=== PATIENT | male | born 1945 | race Caucasian/White ===

== ENCOUNTER 2023-04-18 14:40 | Inpatient (IN) | payer MEDICARE, OTHER ==
[~2023-04-18] VITALS: Ht 170.2 cm; Wt 64.1 kg
[2023-04-18] MEDS ORDERED: FOLI1TAB27 PO (15:04)
[2023-04-18] MEDS ORDERED: ACET-2030 PO (15:04)
[2023-04-18] MEDS ORDERED: SIMV-46 PO (15:04)
[2023-04-18] MEDS ORDERED: MEMA5TAB42 PO (15:04)
[2023-04-18] MEDS ORDERED: TAMS-3 PO (15:04)
[2023-04-18] MEDS ORDERED: EPIN0.3P3 IM (15:04)
[2023-04-18] MEDS ORDERED: ACET325T53 PO (15:04)
[2023-04-18] MEDS ORDERED: ASCO500C18 PO (15:04)
[2023-04-18] MEDS ORDERED: MULT-594 PO (15:04)
[2023-04-18] MEDS ORDERED: NUT.237L36 PO (15:04)
[2023-04-18] MEDS ORDERED: IV NORMAL SALINE 1000 ML BAG IV ONE (15:15)
[2023-04-18] MEDS ORDERED: CEFTRIAXONE 2 G in IV DEXTROSE 5% 100 ML IV ONE (15:15)
[2023-04-18 16:02] LABS: CARBON DIOXIDE 29 mmol/L (21-32); CHLORIDE 102 mmol/L (98-107); CREATININE 1.5 mg/dL (0.6-1.3); GLUCOSE 133 mg/dL (74-106); POTASSIUM 4.4 mmol/L (3.5-5.1); SODIUM SERUM 138 mmol/L (136-145); UREA NITROGEN, BLOOD 20 mg/dL (7-18)
[2023-04-18 16:12] LABS: *BILIRUBIN,URIN NEGATIVE (NEGATIVE); *CLARITY,URINE CLEAR (CLEAR); *COLOR,URINE YELLOW (YELLOW); *KETONES,URINE NEGATIVE (NEGATIVE); *PROTEIN,URINE NEGATIVE (NEGATIVE); *UROBILINOGEN,URINE 0.2 E.U./dl (NORMAL); LEUKOCYTE ESTERASE ,URINE NEGATIVE (NEGATIVE); NITRITE, URINE NEGATIVE (NEGATIVE); UGLUCOSE NEGATIVE (NEGATIVE)
[2023-04-18 16:12] LABS: BASOPHILS % (AUTO) 0.3 % (0.0-2.0); DIFFERENTIAL COMMENT 0; EOSINOPHILS # (AUTO) 0.1 K/uL (0.0-0.7); EOSINOPHILS % (AUTO) 1.7 % (0.0-7.0); HEMATOCRIT 46.6 % (36.7-47.1); HEMOGLOBIN 15.6 g/dL (12.5-16.3); LYMPHOCYTES # (AUTO) 1.4 K/uL (0.8-4.8); LYMPHOCYTES % (AUTO) 16.2 % (20.5-51.5); MEAN CORPUSCULAR HEMOGLOBIN 29.3 uug (23.8-33.4); MEAN CORPUSCULAR HGB CONC 33 g/dL (32.5-36.3); MEAN CORPUSCULAR VOLUME 87.8 fL (73.0-96.2); MONOCYTES # (AUTO) 0.6 K/uL (0.1-1.30); MONOCYTES % (AUTO) 6.8 % (0.0-11.0); NEUTROPHILS # (AUTO) 6.6 K/uL (1.8-8.9); PLATELET COUNT (AUTO) 129 K/uL (152-348); RED BLOOD CELL COUNT(AUTO) 5.31 MIL/uL (4.06-5.63); RED CELL DISTRIBUTION WIDTH 13.4 % (12.1-16.2); WHITE BLOOD COUNT (AUTO) 8.8 K/uL (3.6-10.2)
[2023-04-18 16:16] LABS: *BLOOD, URINE TRACE (NEGATIVE)
[2023-04-18 16:19] LABS: LACTIC ACID 2.9 mmol/L (0.4-2.0)
[2023-04-18 16:20] LABS: AMMONIA 12 umol/L (11-32); ETHANOL < 3 MG/DL (0-10)
[2023-04-18 16:21] LABS: ACETAMINOPHEN < 2.0 ug/mL (10-30); ALANINE AMINOTRANSFERASE 45 U/L (16-63); ALBUMIN 3.7 g/dL (3.4-5.0); ALKALINE PHOSPHATASE 127 U/L (50-136); ASPARTATE AMINOTRANSFERASE 39 U/L (15-37); BILIRUBIN,DIRECT 0.1 mg/dL (0.0-0.2); BILIRUBIN,TOTAL 0.8 mg/dL (0.2-1.0)
[2023-04-18] MEDS ORDERED: METRONIDAZOLE 500 MG/NS 100 ML PIGGYBACK IV ONE (16:30)
[2023-04-18 16:37] LABS: RBC,URINE 0-3 /HPF (0-3); WBC,URINE NONE SEEN /HPF (0-3)
[2023-04-18 16:38] LABS: SQUAMOUS EPITHELIAL CELL,UR FEW /HPF (NONE SEEN)
[2023-04-18 16:42] LABS: *AMPHETAMINE, URINE NEGATIVE (NEGATIVE); *BARBITURATE, URINE NEGATIVE (NEGATIVE); *BENZODIAZEPINE, URINE NEGATIVE (NEGATIVE); *CANNABINOID, URINE NEGATIVE (NEGATIVE); *COCCAINE, URINE NEGATIVE (NEGATIVE); *OPIATE, URINE NEGATIVE (NEGATIVE); *PHENCYCLIDINE SCREEN,URINE NEGATIVE (NEGATIVE); FENTANYL, URINE NEGATIVE (NEGATIVE)
[2023-04-18] MEDS ORDERED: METRONIDAZOLE 500 MG/NS 100ML 100 ML IV ONE (17:10)
[2023-04-18] MEDS ORDERED: SIMVASTATIN 20 MG TABLET PO SCH (21:00)
[2023-04-18] MEDS ORDERED: TAMSULOSIN HCL 0.4 MG CAP.SR.24H PO SCH (21:00)
[2023-04-18] MEDS ORDERED: ACETAMINOPHEN 325 MG TABLET PO PRN (21:15)
[2023-04-18] MEDS ORDERED: MORPHINE SULFATE 2 MG/1 ML DISP.SYRIN IV PRN (21:15)
[2023-04-18] MEDS ORDERED: ONDANSETRON 4 MG/2 ML VIAL IV PRN (21:15)
[2023-04-18] MEDS ORDERED: PIPERACILLIN SODIUM/TAZOBACTAM 3.375 G in IV DEXTROSE 5% 50 ML IV SCH (22:00)
[2023-04-18 22:30] VITALS: BP 150/80; TEMP 97.9; O2SAT 96
[2023-04-18] MEDS ORDERED: PIPERACILLIN/TAZOBACTAM/D5W 50 ML IV ONE ×2 (22:37→22:38)
[2023-04-18] MEDS: IV 1/2NS 1000 ML 1,000 ML IV PRN (22:42)
[2023-04-18] MEDS: PIPERACILLIN SODIUM/TAZOBACTAM 3.375 G in IV DEXTROSE 5% 50 ML IV SCH (22:42)
[2023-04-19 05:28] VITALS: BP 126/66; TEMP 98; O2SAT 93
[2023-04-19] MEDS: PIPERACILLIN SODIUM/TAZOBACTAM 3.375 G in IV DEXTROSE 5% 50 ML IV SCH (05:44)
[2023-04-19] MEDS: PANTOPRAZOLE SODIUM 40 MG TABLET.DR PO SCH (06:02)
[2023-04-19 07:11] LABS: BASOPHILS % (AUTO) 0.2 % (0.0-2.0); EOSINOPHILS # (AUTO) 0.1 K/uL (0.0-0.7); EOSINOPHILS % (AUTO) 1.1 % (0.0-7.0); HEMATOCRIT 41.3 % (36.7-47.1); HEMOGLOBIN 14.1 g/dL (12.5-16.3); LYMPHOCYTES # (AUTO) 0.8 K/uL (0.8-4.8); LYMPHOCYTES % (AUTO) 9.5 % (20.5-51.5); MEAN CORPUSCULAR HGB CONC 34 g/dL (32.5-36.3); MEAN CORPUSCULAR VOLUME 87.6 fL (73.0-96.2); MONOCYTES # (AUTO) 0.4 K/uL (0.1-1.30); MONOCYTES % (AUTO) 4.6 % (0.0-11.0); NEUTROPHILS # (AUTO) 7.1 K/uL (1.8-8.9); NEUTROPHILS % (AUTO) 84.6 % (38.5-71.5); PLATELET COUNT (AUTO) 92 K/uL (152-348); RED BLOOD CELL COUNT(AUTO) 4.71 MIL/uL (4.06-5.63); RED CELL DISTRIBUTION WIDTH 13.5 % (12.1-16.2); WHITE BLOOD COUNT (AUTO) 8.4 K/uL (3.6-10.2)
[2023-04-19 07:21] LABS: DIFFERENTIAL COMMENT 1
[2023-04-19 07:24] LABS: ALANINE AMINOTRANSFERASE 40 U/L (16-63); ALBUMIN 3.1 g/dL (3.4-5.0); ALKALINE PHOSPHATASE 107 U/L (50-136); ASPARTATE AMINOTRANSFERASE 29 U/L (15-37); BILIRUBIN,TOTAL 0.9 mg/dL (0.2-1.0); CALCIUM 8.6 mg/dL (8.5-10.1); CARBON DIOXIDE 26 mmol/L (21-32); CHLORIDE 105 mmol/L (98-107); CHOLESTEROL 91 mg/dL (<200); CREATININE 1.5 mg/dL (0.6-1.3); GLUCOSE 104 mg/dL (74-106); HDL CHOLESTEROL 32 mg/dL (40-60); NT-PRO BNP 240 pg/mL (0-125); PHOSPHOROUS 2.8 mg/dL (2.5-4.9); SODIUM SERUM 140 mmol/L (136-145); TOTAL PROTEIN, SERUM 6.8 g/dL (6.4-8.2); TRIGLYCERIDES 76 MG/DL (30-150); UREA NITROGEN, BLOOD 18 mg/dL (7-18)
[2023-04-19] MEDS ORDERED: ASPIRIN 81 MG TAB.CHEW PO ONE (09:00)
[2023-04-19] MEDS: MEMANTINE HCL 5 MG TABLET PO SCH ×2 (09:22→17:11)
[2023-04-19] MEDS: MULTIVITAMINS,THERAPEUTIC TABLET PO SCH (09:22)
[2023-04-19] MEDS: ASCORBIC ACID 500 MG TABLET PO SCH (09:22)
[2023-04-19] MEDS: FOLIC ACID 1 MG TABLET PO SCH (09:23)
[2023-04-19 11:15] VITALS: BP 155/73; TEMP 97.6; O2SAT 97
[2023-04-19] MEDS ORDERED: CLONIDINE HCL 0.1 MG TABLET PO PRN (11:45)
[2023-04-19] MEDS: IV 1/2NS 1000 ML 1,000 ML IV PRN (14:46)
[2023-04-19] MEDS: PIPERACILLIN SODIUM/TAZOBACTAM 3.375 G in IV DEXTROSE 5% 100 ML IV SCH ×2 (14:47→22:06)
[2023-04-19 15:03] VITALS: BP 138/57; TEMP 98.2; O2SAT 96
[2023-04-19 20:10] VITALS: BP 133/73; TEMP 98.4; O2SAT 94
[2023-04-19 20:32] VITALS: BP 98/57; TEMP 98.2; O2SAT 94
[2023-04-19] MEDS: TAMSULOSIN HCL 0.4 MG CAP.SR.24H PO SCH (20:53)
[2023-04-19] MEDS: DOCUSATE SODIUM 100 MG CAPSULE PO SCH (20:53)
[2023-04-20 00:20] VITALS: BP_SYST 112; BP_SYST 128; BP_DIAS 74; BP_DIAS 85; TEMP 98.9; O2SAT 100; O2SAT 96
[2023-04-20 04:22] VITALS: BP 128/66; TEMP 98.2; O2SAT 97
[2023-04-20] MEDS: PIPERACILLIN SODIUM/TAZOBACTAM 3.375 G in IV DEXTROSE 5% 100 ML IV SCH ×3 (05:51→22:08)
[2023-04-20 06:21] LABS: *BILIRUBIN,URIN NEGATIVE (NEGATIVE); *BLOOD, URINE 3+ (NEGATIVE); *COLOR,URINE YELLOW (YELLOW); *CREATININE,URINE 96.4 mg/dL (30-125); *KETONES,URINE 1+ (NEGATIVE); *PROTEIN,URINE 2+ (NEGATIVE); *URINE TOTAL PROTEIN RANDOM 126.6 mg/dL (<150/24HR); *UROBILINOGEN,URINE 0.2 E.U./dl (NORMAL); NITRITE, URINE NEGATIVE (NEGATIVE); PH,URINE 5.5 (5.0-8.0); UGLUCOSE NEGATIVE (NEGATIVE)
[2023-04-20 06:23] LABS: *CLARITY,URINE SLIGHTLY CLOUDY (CLEAR); LEUKOCYTE ESTERASE ,URINE NEGATIVE (NEGATIVE)
[2023-04-20 06:54] LABS: RBC,URINE TNTC /HPF (0-3); WBC,URINE NONE SEEN /HPF (0-3)
[2023-04-20] MEDS: PANTOPRAZOLE SODIUM 40 MG TABLET.DR PO SCH (07:07)
[2023-04-20] MEDS: MULTIVITAMINS,THERAPEUTIC TABLET PO SCH (08:48)
[2023-04-20] MEDS: MEMANTINE HCL 5 MG TABLET PO SCH ×2 (08:48→16:44)
[2023-04-20] MEDS: FOLIC ACID 1 MG TABLET PO SCH (08:48)
[2023-04-20] MEDS: ASCORBIC ACID 500 MG TABLET PO SCH (08:48)
[2023-04-20 11:31] VITALS: BP 145/74; TEMP 97.7; O2SAT 97
[2023-04-20] MEDS ORDERED: ASPIRIN 81 MG TAB.CHEW PO ONE (14:30)
[2023-04-20 15:43] VITALS: BP 128/55; TEMP 98; O2SAT 95
[2023-04-20] MEDS: ENSURE ENLIVE (VAN) 240 ML LIQUID PO SCH (16:44)
[2023-04-20 20:00] VITALS: BP 123/57; TEMP 98.2
[2023-04-20] MEDS: DOCUSATE SODIUM 100 MG CAPSULE PO SCH (20:23)
[2023-04-20] MEDS: TAMSULOSIN HCL 0.4 MG CAP.SR.24H PO SCH (20:23)
[2023-04-21] MEDS: IV 1/2NS 1000 ML 1,000 ML IV PRN (03:50)
[2023-04-21 05:22] VITALS: BP 132/68; TEMP 98.3; O2SAT 93
[2023-04-21] MEDS: PIPERACILLIN SODIUM/TAZOBACTAM 3.375 G in IV DEXTROSE 5% 100 ML IV SCH ×3 (05:50→21:04)
[2023-04-21] MEDS: PANTOPRAZOLE SODIUM 40 MG TABLET.DR PO SCH (05:55)
[2023-04-21 07:03] LABS: BASOPHILS % (AUTO) 0.2 % (0.0-2.0); EOSINOPHILS # (AUTO) 0.3 K/uL (0.0-0.7); EOSINOPHILS % (AUTO) 2.9 % (0.0-7.0); HEMATOCRIT 39.7 % (36.7-47.1); HEMOGLOBIN 13.6 g/dL (12.5-16.3); LYMPHOCYTES # (AUTO) 1.1 K/uL (0.8-4.8); LYMPHOCYTES % (AUTO) 10.6 % (20.5-51.5); MEAN CORPUSCULAR HEMOGLOBIN 29.9 uug (23.8-33.4); MEAN CORPUSCULAR HGB CONC 34 g/dL (32.5-36.3); MEAN CORPUSCULAR VOLUME 87.2 fL (73.0-96.2); MONOCYTES # (AUTO) 0.7 K/uL (0.1-1.30); MONOCYTES % (AUTO) 6.6 % (0.0-11.0); NEUTROPHILS # (AUTO) 8.1 K/uL (1.8-8.9); NEUTROPHILS % (AUTO) 79.7 % (38.5-71.5); PLATELET COUNT (AUTO) 100 K/uL (152-348); RED BLOOD CELL COUNT(AUTO) 4.55 MIL/uL (4.06-5.63); RED CELL DISTRIBUTION WIDTH 13.3 % (12.1-16.2); WHITE BLOOD COUNT (AUTO) 10.2 K/uL (3.6-10.2)
[2023-04-21 07:17] LABS: DIFFERENTIAL COMMENT 1
[2023-04-21 07:23] LABS: ALANINE AMINOTRANSFERASE 27 U/L (16-63); ALKALINE PHOSPHATASE 86 U/L (50-136); ASPARTATE AMINOTRANSFERASE 19 U/L (15-37); BILIRUBIN,TOTAL 0.6 mg/dL (0.2-1.0); CALCIUM 9.2 mg/dL (8.5-10.1); CARBON DIOXIDE 32 mmol/L (21-32); CHLORIDE 103 mmol/L (98-107); CREATINE KINASE, TOTAL 177 U/L (39-308); CREATININE 1.8 mg/dL (0.6-1.3); GLUCOSE 114 mg/dL (74-106); MAGNESIUM 2.1 mg/dL (1.8-2.4); PHOSPHOROUS 2.8 mg/dL (2.5-4.9); POTASSIUM 3.5 mmol/L (3.5-5.1); SODIUM SERUM 139 mmol/L (136-145); TOTAL PROTEIN, SERUM 6.8 g/dL (6.4-8.2); UREA NITROGEN, BLOOD 18 mg/dL (7-18)
[2023-04-21 08:00] VITALS: BP 133/70; TEMP 98.1; O2SAT 94
[2023-04-21] MEDS: MEMANTINE HCL 5 MG TABLET PO SCH ×2 (09:05→17:20)
[2023-04-21] MEDS: ASCORBIC ACID 500 MG TABLET PO SCH (09:05)
[2023-04-21] MEDS: FOLIC ACID 1 MG TABLET PO SCH (09:05)
[2023-04-21] MEDS: MULTIVITAMINS,THERAPEUTIC TABLET PO SCH (09:05)
[2023-04-21] MEDS: ENSURE ENLIVE (VAN) 240 ML LIQUID PO SCH ×2 (09:06→17:20)
[2023-04-21] MEDS ORDERED: FUROSEMIDE 20 MG/2 ML VIAL IV ONE (10:45)
[2023-04-21 11:32] VITALS: BP 129/68; TEMP 98.5; O2SAT 96
[2023-04-21] MEDS ORDERED: ASPIRIN 81 MG TAB.CHEW PO ONE (12:00)
[2023-04-21 16:00] VITALS: BP 128/79; TEMP 98.5; O2SAT 96
[2023-04-21 20:00] VITALS: BP 131/65; TEMP 97.8; O2SAT 100
[2023-04-21] MEDS: DOCUSATE SODIUM 100 MG CAPSULE PO SCH (20:25)
[2023-04-21] MEDS: TAMSULOSIN HCL 0.4 MG CAP.SR.24H PO SCH (20:25)
[2023-04-22 04:45] VITALS: BP 128/70; TEMP 98; O2SAT 100
[2023-04-22] MEDS: PIPERACILLIN SODIUM/TAZOBACTAM 3.375 G in IV DEXTROSE 5% 100 ML IV SCH ×3 (05:05→21:21)
[2023-04-22] MEDS: PANTOPRAZOLE SODIUM 40 MG TABLET.DR PO SCH (06:05)
[2023-04-22 07:15] LABS: BASOPHILS # (AUTO) 0.1 K/UL (0.0-0.2); BASOPHILS % (AUTO) 0.6 % (0.0-2.0); EOSINOPHILS # (AUTO) 0.4 K/uL (0.0-0.7); EOSINOPHILS % (AUTO) 3.3 % (0.0-7.0); HEMATOCRIT 39.6 % (36.7-47.1); HEMOGLOBIN 13.3 g/dL (12.5-16.3); LYMPHOCYTES # (AUTO) 1.2 K/uL (0.8-4.8); LYMPHOCYTES % (AUTO) 10.1 % (20.5-51.5); MEAN CORPUSCULAR HEMOGLOBIN 29.5 uug (23.8-33.4); MEAN CORPUSCULAR HGB CONC 34 g/dL (32.5-36.3); MEAN CORPUSCULAR VOLUME 87.5 fL (73.0-96.2); MONOCYTES # (AUTO) 0.7 K/uL (0.1-1.30); MONOCYTES % (AUTO) 6.4 % (0.0-11.0); NEUTROPHILS # (AUTO) 9.1 K/uL (1.8-8.9); NEUTROPHILS % (AUTO) 79.6 % (38.5-71.5); PLATELET COUNT (AUTO) 99 K/uL (152-348); RED BLOOD CELL COUNT(AUTO) 4.52 MIL/uL (4.06-5.63); RED CELL DISTRIBUTION WIDTH 13.6 % (12.1-16.2); WHITE BLOOD COUNT (AUTO) 11.4 K/uL (3.6-10.2)
[2023-04-22 07:28] LABS: DIFFERENTIAL COMMENT 1
[2023-04-22 07:33] LABS: ALANINE AMINOTRANSFERASE 30 U/L (16-63); ALBUMIN 3.1 g/dL (3.4-5.0); ALKALINE PHOSPHATASE 82 U/L (50-136); ASPARTATE AMINOTRANSFERASE 23 U/L (15-37); BILIRUBIN,TOTAL 0.5 mg/dL (0.2-1.0); CALCIUM 9.3 mg/dL (8.5-10.1); CARBON DIOXIDE 30 mmol/L (21-32); CHLORIDE 103 mmol/L (98-107); GLUCOSE 106 mg/dL (74-106); MAGNESIUM 2.1 mg/dL (1.8-2.4); POTASSIUM 3.5 mmol/L (3.5-5.1); SODIUM SERUM 140 mmol/L (136-145); TOTAL PROTEIN, SERUM 7.2 g/dL (6.4-8.2); UREA NITROGEN, BLOOD 23 mg/dL (7-18)
[2023-04-22 07:59] VITALS: BP 109/71; TEMP 98.2; O2SAT 94
[2023-04-22] MEDS: ENSURE ENLIVE (VAN) 240 ML LIQUID PO SCH ×2 (08:02→16:27)
[2023-04-22 08:07] LABS: PTH, INTACT 21 pg/mL (15-65)
[2023-04-22] MEDS: MULTIVITAMINS,THERAPEUTIC TABLET PO SCH (08:32)
[2023-04-22] MEDS: FOLIC ACID 1 MG TABLET PO SCH (08:33)
[2023-04-22] MEDS: ASPIRIN 81 MG TAB.CHEW PO SCH (08:33)
[2023-04-22] MEDS: MEMANTINE HCL 5 MG TABLET PO SCH ×2 (08:33→16:26)
[2023-04-22] MEDS: ASCORBIC ACID 500 MG TABLET PO SCH (08:33)
[2023-04-22 11:42] VITALS: BP 123/73; TEMP 98.5; O2SAT 94
[2023-04-22 14:06] LABS: A/G RATIO 1.1 (0.7-1.7); ALBUMIN 3.3 g/dL (2.9-4.4); ALPHA-1-GLOBULIN 0.3 g/dL (0.0-0.4); ALPHA-2-GLOBULIN 0.7 g/dL (0.4-1.0); BETA GLOBULIN 0.9 g/dL (0.7-1.3); GAMMA GLOBULIN 1.1 g/dL (0.4-1.8); GLOBULIN, TOTAL 3.1 g/dL (2.2-3.9); M-SPIKE Not Observed g/dL (Not Observed)
[2023-04-22 16:00] VITALS: BP 130/74; TEMP 98.1; O2SAT 96
[2023-04-22] MEDS: TAMSULOSIN HCL 0.4 MG CAP.SR.24H PO SCH (20:16)
[2023-04-22] MEDS: DOCUSATE SODIUM 100 MG CAPSULE PO SCH (20:16)
[2023-04-22 20:22] VITALS: BP 122/69; TEMP 97.2; O2SAT 93
[2023-04-23 04:10] VITALS: BP 135/72; TEMP 97.3; O2SAT 93
[2023-04-23] MEDS: PIPERACILLIN SODIUM/TAZOBACTAM 3.375 G in IV DEXTROSE 5% 100 ML IV SCH ×3 (05:29→21:04)
[2023-04-23 07:43] LABS: BASOPHILS % (AUTO) 0.3 % (0.0-2.0); EOSINOPHILS # (AUTO) 0.4 K/uL (0.0-0.7); EOSINOPHILS % (AUTO) 3.9 % (0.0-7.0); HEMATOCRIT 41.1 % (36.7-47.1); HEMOGLOBIN 13.7 g/dL (12.5-16.3); LYMPHOCYTES # (AUTO) 1.3 K/uL (0.8-4.8); LYMPHOCYTES % (AUTO) 13.5 % (20.5-51.5); MEAN CORPUSCULAR HEMOGLOBIN 29.3 uug (23.8-33.4); MEAN CORPUSCULAR HGB CONC 33 g/dL (32.5-36.3); MEAN CORPUSCULAR VOLUME 87.9 fL (73.0-96.2); MONOCYTES # (AUTO) 0.6 K/uL (0.1-1.30); MONOCYTES % (AUTO) 6.6 % (0.0-11.0); NEUTROPHILS # (AUTO) 7.3 K/uL (1.8-8.9); NEUTROPHILS % (AUTO) 75.7 % (38.5-71.5); PLATELET COUNT (AUTO) 100 K/uL (152-348); RED BLOOD CELL COUNT(AUTO) 4.67 MIL/uL (4.06-5.63); RED CELL DISTRIBUTION WIDTH 13.4 % (12.1-16.2); WHITE BLOOD COUNT (AUTO) 9.7 K/uL (3.6-10.2)
[2023-04-23] MEDS: ENSURE ENLIVE (VAN) 240 ML LIQUID PO SCH ×2 (08:00→17:46)
[2023-04-23 08:04] LABS: CALCIUM 9.6 mg/dL (8.5-10.1); CARBON DIOXIDE 32 mmol/L (21-32); CHLORIDE 103 mmol/L (98-107); DIFFERENTIAL COMMENT 1; GLUCOSE 97 mg/dL (74-106); POTASSIUM 3.6 mmol/L (3.5-5.1); SODIUM SERUM 138 mmol/L (136-145); UREA NITROGEN, BLOOD 28 mg/dL (7-18)
[2023-04-23] MEDS: ASPIRIN 81 MG TAB.CHEW PO SCH (09:05)
[2023-04-23] MEDS: MULTIVITAMINS,THERAPEUTIC TABLET PO SCH (09:06)
[2023-04-23] MEDS: MEMANTINE HCL 5 MG TABLET PO SCH ×2 (09:06→17:46)
[2023-04-23] MEDS: ASCORBIC ACID 500 MG TABLET PO SCH (09:06)
[2023-04-23] MEDS: PANTOPRAZOLE SODIUM 40 MG TABLET.DR PO SCH (09:10)
[2023-04-23] MEDS: FOLIC ACID 1 MG TABLET PO SCH (09:10)
[2023-04-23 16:00] VITALS: BP 132/74; TEMP 98.2; O2SAT 94
[2023-04-23 21:01] VITALS: BP 117/77; TEMP 97.6; O2SAT 91
[2023-04-23] MEDS: DOCUSATE SODIUM 100 MG CAPSULE PO SCH (21:04)
[2023-04-23] MEDS: TAMSULOSIN HCL 0.4 MG CAP.SR.24H PO SCH (21:04)
[2023-04-24 04:50] VITALS: BP 129/73; TEMP 97.8; O2SAT 92
[2023-04-24] MEDS: PIPERACILLIN SODIUM/TAZOBACTAM 3.375 G in IV DEXTROSE 5% 100 ML IV SCH (05:43)
[2023-04-24] MEDS: PANTOPRAZOLE SODIUM 40 MG TABLET.DR PO SCH (06:12)
[2023-04-24 07:59] LABS: BASOPHILS # (AUTO) 0.1 K/UL (0.0-0.2); BASOPHILS % (AUTO) 0.9 % (0.0-2.0); EOSINOPHILS # (AUTO) 0.3 K/uL (0.0-0.7); EOSINOPHILS % (AUTO) 2.7 % (0.0-7.0); HEMATOCRIT 41.7 % (36.7-47.1); HEMOGLOBIN 13.8 g/dL (12.5-16.3); LYMPHOCYTES # (AUTO) 1.7 K/uL (0.8-4.8); LYMPHOCYTES % (AUTO) 16.2 % (20.5-51.5); MEAN CORPUSCULAR HEMOGLOBIN 29.4 uug (23.8-33.4); MEAN CORPUSCULAR HGB CONC 33 g/dL (32.5-36.3); MEAN CORPUSCULAR VOLUME 88.6 fL (73.0-96.2); MONOCYTES # (AUTO) 0.8 K/uL (0.1-1.30); NEUTROPHILS # (AUTO) 7.6 K/uL (1.8-8.9); NEUTROPHILS % (AUTO) 72.2 % (38.5-71.5); PLATELET COUNT (AUTO) 82 K/uL (152-348); RED BLOOD CELL COUNT(AUTO) 4.71 MIL/uL (4.06-5.63); RED CELL DISTRIBUTION WIDTH 13.4 % (12.1-16.2); WHITE BLOOD COUNT (AUTO) 10.5 K/uL (3.6-10.2)
[2023-04-24 08:03] LABS: DIFFERENTIAL COMMENT 1
[2023-04-24 08:07] LABS: CALCIUM 9.5 mg/dL (8.5-10.1); CARBON DIOXIDE 32 mmol/L (21-32); CHLORIDE 102 mmol/L (98-107); CREATININE 1.9 mg/dL (0.6-1.3); GLUCOSE 90 mg/dL (74-106); POTASSIUM 3.9 mmol/L (3.5-5.1); SODIUM SERUM 137 mmol/L (136-145); UREA NITROGEN, BLOOD 30 mg/dL (7-18)
[2023-04-24] MEDS: ASCORBIC ACID 500 MG TABLET PO SCH (08:15)
[2023-04-24] MEDS: FOLIC ACID 1 MG TABLET PO SCH (08:15)
[2023-04-24] MEDS: ASPIRIN 81 MG TAB.CHEW PO SCH (08:15)
[2023-04-24] MEDS: MEMANTINE HCL 5 MG TABLET PO SCH ×2 (08:15→17:54)
[2023-04-24] MEDS: ENSURE ENLIVE (VAN) 240 ML LIQUID PO SCH ×2 (08:15→17:55)
[2023-04-24] MEDS: MULTIVITAMINS,THERAPEUTIC TABLET PO SCH (08:15)
[2023-04-24 12:00] VITALS: BP 125/61; TEMP 98; O2SAT 94
[2023-04-24 16:56] VITALS: BP 109/64; TEMP 98; O2SAT 95
[2023-04-24 20:00] VITALS: BP 121/68; TEMP 98.1; O2SAT 95
[2023-04-24] MEDS: TAMSULOSIN HCL 0.4 MG CAP.SR.24H PO SCH (20:13)
[2023-04-24] MEDS: DOCUSATE SODIUM 100 MG CAPSULE PO SCH (20:13)
[2023-04-25 04:35] VITALS: BP 130/86; TEMP 98.9; O2SAT 95
[2023-04-25 06:58] LABS: BASOPHILS # (AUTO) 0.1 K/UL (0.0-0.2); BASOPHILS % (AUTO) 0.6 % (0.0-2.0); EOSINOPHILS # (AUTO) 0.4 K/uL (0.0-0.7); EOSINOPHILS % (AUTO) 4.9 % (0.0-7.0); HEMATOCRIT 39.8 % (36.7-47.1); HEMOGLOBIN 13.4 g/dL (12.5-16.3); LYMPHOCYTES # (AUTO) 1.5 K/uL (0.8-4.8); LYMPHOCYTES % (AUTO) 16.9 % (20.5-51.5); MEAN CORPUSCULAR HEMOGLOBIN 29.5 uug (23.8-33.4); MEAN CORPUSCULAR HGB CONC 34 g/dL (32.5-36.3); MEAN CORPUSCULAR VOLUME 87.7 fL (73.0-96.2); MONOCYTES # (AUTO) 0.5 K/uL (0.1-1.30); NEUTROPHILS # (AUTO) 6.5 K/uL (1.8-8.9); NEUTROPHILS % (AUTO) 71.6 % (38.5-71.5); PLATELET COUNT (AUTO) 125 K/uL (152-348); RED BLOOD CELL COUNT(AUTO) 4.54 MIL/uL (4.06-5.63); RED CELL DISTRIBUTION WIDTH 13.5 % (12.1-16.2)
[2023-04-25] MEDS: PANTOPRAZOLE SODIUM 40 MG TABLET.DR PO SCH (07:05)
[2023-04-25 07:12] LABS: DIFFERENTIAL COMMENT 1
[2023-04-25 07:13] LABS: CALCIUM 9.6 mg/dL (8.5-10.1); CARBON DIOXIDE 31 mmol/L (21-32); CHLORIDE 105 mmol/L (98-107); CREATININE 1.8 mg/dL (0.6-1.3); GLUCOSE 98 mg/dL (74-106); POTASSIUM 3.9 mmol/L (3.5-5.1); SODIUM SERUM 143 mmol/L (136-145); UREA NITROGEN, BLOOD 40 mg/dL (7-18)
[2023-04-25] MEDS: MEMANTINE HCL 5 MG TABLET PO SCH ×2 (08:17→17:12)
[2023-04-25] MEDS: MULTIVITAMINS,THERAPEUTIC TABLET PO SCH (08:17)
[2023-04-25] MEDS: ENSURE ENLIVE (VAN) 240 ML LIQUID PO SCH (08:17)
[2023-04-25] MEDS: FOLIC ACID 1 MG TABLET PO SCH (08:17)
[2023-04-25] MEDS: ASPIRIN 81 MG TAB.CHEW PO SCH (08:17)
[2023-04-25] MEDS: ASCORBIC ACID 500 MG TABLET PO SCH (08:17)
[2023-04-25] MEDS ORDERED: ENSURE ENLIVE (VAN) 240 ML LIQUID PO SCH (12:15)
== END 2023-04-25 18:30 | DRG 682 ==
LOC: ER 14:40 → MEDSURG3 20:54 → TELE3 22:06 → MEDSURG3 04-22 08:00
PROVIDERS: ADMIT Internal Medicine; ATTEND Internal Medicine
DX: N17.0 Acute kidney failure with tubular necrosis (principal); G93.41 Metabolic encephalopathy; I69.354 Hemiplegia and hemiparesis following cerebral infarction affecting left non-dominant side; D68.69 Other thrombophilia; G91.2 (Idiopathic) normal pressure hydrocephalus; E87.20 Acidosis, unspecified; E86.0 Dehydration; Z74.09 Other reduced mobility; E11.22 Type 2 diabetes mellitus with diabetic chronic kidney disease; E78.5 Hyperlipidemia, unspecified; E86.1 Hypovolemia; G40.909 Epilepsy, unspecified, not intractable, without status epilepticus; N40.0 Benign prostatic hyperplasia without lower urinary tract symptoms; Z87.891 Personal history of nicotine dependence; I69.320 Aphasia following cerebral infarction; F01.50 Vascular dementia, unspecified severity, without behavioral disturbance, psychotic disturbance, mood disturbance, and anxiety; D64.9 Anemia, unspecified; N18.2 Chronic kidney disease, stage 2 (mild); D69.6 Thrombocytopenia, unspecified; I44.0 Atrioventricular block, first degree; M62.462 Contracture of muscle, left lower leg; M62.422 Contracture of muscle, left upper arm
CPT/HCPCS: 36415; 70450; 71045; 76770; 83605; 83735; 83970; 84100; 84155; 84165; 84300; 84443; 84484; 85025; 85730; 87040; 93005; A4663; C1758; G0378; G0480; J0696; J1940; J2543; J3490; J7040

== ENCOUNTER 2023-12-19 13:58 | Inpatient (IN) | payer MEDICARE, OTHER ==
[~2023-12-19] VITALS: Ht 167.6 cm; Wt 63.5 kg
[~2023-12-19 13:58] MED LIST: ACET-2030 PO; ACET325T53 PO; ASCO500C18 PO; EPIN0.3P3 IM; FOLI1TAB27 PO; MEMA5TAB42 PO; MULT-594 PO; NUT.237L36 PO; SIMV-46 PO; TAMS-3 PO
[2023-12-19 14:40] LABS: BASOPHILS # (AUTO) 0.3 K/UL (0.0-0.2); BASOPHILS % (AUTO) 2.9 % (0.0-2.0); EOSINOPHILS # (AUTO) 0.2 K/uL (0.0-0.7); EOSINOPHILS % (AUTO) 2.3 % (0.0-7.0); HEMATOCRIT 45.2 % (36.7-47.1); HEMOGLOBIN 14.5 g/dL (12.5-16.3); LYMPHOCYTES # (AUTO) 1.4 K/uL (0.8-4.8); LYMPHOCYTES % (AUTO) 14.6 % (20.5-51.5); MEAN CORPUSCULAR HEMOGLOBIN 27.8 uug (23.8-33.4); MEAN CORPUSCULAR HGB CONC 32 g/dL (32.5-36.3); MEAN CORPUSCULAR VOLUME 86.7 fL (73.0-96.2); MONOCYTES # (AUTO) 0.5 K/uL (0.1-1.30); MONOCYTES % (AUTO) 4.9 % (0.0-11.0); NEUTROPHILS # (AUTO) 7.2 K/uL (1.8-8.9); NEUTROPHILS % (AUTO) 75.3 % (38.5-71.5); PLATELET COUNT (AUTO) 136 K/uL (152-348); RED BLOOD CELL COUNT(AUTO) 5.22 MIL/uL (4.06-5.63); RED CELL DISTRIBUTION WIDTH 13.4 % (12.1-16.2); WHITE BLOOD COUNT (AUTO) 9.5 K/uL (3.6-10.2)
[2023-12-19 14:45] LABS: DIFFERENTIAL COMMENT 1
[2023-12-19 14:52] LABS: CALCIUM 9.6 mg/dL (8.5-10.1); CARBON DIOXIDE 28 mmol/L (21-32); CHLORIDE 103 mmol/L (98-107); CREATININE 1.4 mg/dL (0.6-1.3); GLUCOSE 110 mg/dL (74-106); POTASSIUM 3.7 mmol/L (3.5-5.1); SODIUM SERUM 140 mmol/L (136-145); UREA NITROGEN, BLOOD 27 mg/dL (7-18)
[2023-12-19] MEDS: IV NORMAL SALINE 500 ML BAG IV ONE (14:52)
[2023-12-19 15:05] LABS: ALANINE AMINOTRANSFERASE 26 U/L (16-63); ALBUMIN 3.4 g/dL (3.4-5.0); ALKALINE PHOSPHATASE 111 U/L (50-136); ASPARTATE AMINOTRANSFERASE 17 U/L (15-37); BILIRUBIN,DIRECT 0.1 mg/dL (0.0-0.2); BILIRUBIN,TOTAL 0.6 mg/dL (0.2-1.0); NT-PRO BNP 79 pg/mL (0-125)
[2023-12-19] MEDS ORDERED: CYAN-51 PO (18:25)
[2023-12-19] MEDS ORDERED: CHOL10005 PO (18:25)
[2023-12-19] MEDS ORDERED: MAGNESIUM HYDROXIDE 30 ML LIQUID UDC PO PRN (18:30)
[2023-12-19] MEDS ORDERED: TEMAZEPAM 15 MG CAPSULE PO PRN (18:30)
[2023-12-19] MEDS ORDERED: ONDANSETRON 4 MG/2 ML VIAL IV PRN (18:30)
[2023-12-19] MEDS ORDERED: ALBUTEROL SULFATE 2.5 MG/ 0.5 ML NEBU NEB PRN (18:30)
[2023-12-19] MEDS ORDERED: ACETAMINOPHEN 325 MG TABLET PO PRN (18:30)
[2023-12-19 20:00] VITALS: BP 135/91; TEMP 97.3; O2SAT 98
[2023-12-19] MEDS ORDERED: PIPERACILLIN/TAZOBACTAM/D5W 50 ML IV ONE (20:57)
[2023-12-19] MEDS ORDERED: IV 1/2 NS + KCL 20 MEQ BAG 1,000 ML ONE (20:58)
[2023-12-19] MEDS: ACIDOPHILUS/BULGARICUS CHEW TAB PO SCH (21:00)
[2023-12-19] MEDS: TAMSULOSIN HCL 0.4 MG CAP.SR.24H PO SCH (21:59)
[2023-12-19] MEDS: SIMVASTATIN 20 MG TABLET PO SCH (21:59)
[2023-12-19] MEDS: DOCUSATE SODIUM 250 MG CAPSULE PO SCH (21:59)
[2023-12-19] MEDS ORDERED: PIPERACILLIN SODIUM/TAZOBACTAM 3.375 G in IV DEXTROSE 5% 50 ML IV SCH (22:00)
[2023-12-19] MEDS ORDERED: FLUDROCORTISONE ACETATE 0.1 MG TABLET ONE (22:01)
[2023-12-19] MEDS: PIPERACILLIN SODIUM/TAZOBACTAM 3.375 G in IV DEXTROSE 5% 50 ML IV ONE (22:02)
[2023-12-19] MEDS: POTASSIUM CHLORIDE 20 MEQ in IV 1/2NS 1000 ML 1,000 ML IV PRN (22:30)
[2023-12-20 04:44] VITALS: O2SAT 97
[2023-12-20 06:30] VITALS: BP 141/85; TEMP 97.5; O2SAT 97
[2023-12-20] MEDS ORDERED: ALBUTEROL SULFATE 2.5 MG/3 ML NEBU NEB PRN (06:30)
[2023-12-20] MEDS ORDERED: PIPERACILLIN SODIUM/TAZO 3.375 GM VIAL ONE (06:31)
[2023-12-20] MEDS: PIPERACILLIN SODIUM/TAZOBACTAM 3.375 G in IV DEXTROSE 5% 100 ML IV SCH (06:44)
[2023-12-20] MEDS: CYANOCOBALAMIN 1,000 MCG TABLET PO SCH (08:40)
[2023-12-20] MEDS: MEMANTINE HCL 5 MG TABLET PO SCH (08:40)
[2023-12-20] MEDS: MULTIVITAMINS,THERAPEUTIC TABLET PO SCH (08:40)
[2023-12-20] MEDS: FOLIC ACID 1 MG TABLET PO SCH (08:40)
[2023-12-20] MEDS: CHOLECALCIFEROL 1,000 UNIT TABLET PO SCH (08:40)
[2023-12-20] MEDS: ASCORBIC ACID 500 MG TABLET PO SCH (08:40)
[2023-12-20] MEDS ORDERED: Medication Not On Formulary EA (Cholecalciferol (Vitamin D3) (Vitamin D3) 1 CAP) PO SCH (09:00)
[2023-12-20] MEDS ORDERED: Medication Not On Formulary EA (Ascorbic Acid (Vitamin C) 1 CAP) PO SCH (09:00)
[2023-12-20 11:41] VITALS: BP 138/81; TEMP 98.3; O2SAT 97
[2023-12-20 16:00] VITALS: BP 125/67; TEMP 98.8; O2SAT 90
[2023-12-20] MEDS ORDERED: SIMVASTATIN 20 MG TABLET PO SCH (21:00)
[2023-12-20] MEDS: DOCUSATE SODIUM 100 MG CAPSULE PO SCH (21:33)
[2023-12-20 21:36] VITALS: O2SAT 96
[2023-12-20 22:28] VITALS: BP 108/73; TEMP 97.8; O2SAT 97
[2023-12-21 03:59] VITALS: O2SAT 97
[2023-12-21 06:51] VITALS: BP 138/58; TEMP 98; O2SAT 97
[2023-12-21 11:27] VITALS: BP 137/77; TEMP 98.3; O2SAT 97
[2023-12-21 12:52] LABS: BASOPHILS % (AUTO) 0.6 % (0.0-2.0); EOSINOPHILS # (AUTO) 0.2 K/uL (0.0-0.7); HEMATOCRIT 39.9 % (36.7-47.1); HEMOGLOBIN 12.8 g/dL (12.5-16.3); LYMPHOCYTES # (AUTO) 1.2 K/uL (0.8-4.8); LYMPHOCYTES % (AUTO) 15.9 % (20.5-51.5); MEAN CORPUSCULAR HGB CONC 32 g/dL (32.5-36.3); MEAN CORPUSCULAR VOLUME 87.1 fL (73.0-96.2); MONOCYTES # (AUTO) 0.4 K/uL (0.1-1.30); MONOCYTES % (AUTO) 5.4 % (0.0-11.0); NEUTROPHILS # (AUTO) 5.9 K/uL (1.8-8.9); NEUTROPHILS % (AUTO) 75.1 % (38.5-71.5); PLATELET COUNT (AUTO) 114 K/uL (152-348); RED BLOOD CELL COUNT(AUTO) 4.59 MIL/uL (4.06-5.63); RED CELL DISTRIBUTION WIDTH 13.6 % (12.1-16.2); WHITE BLOOD COUNT (AUTO) 7.8 K/uL (3.6-10.2)
[2023-12-21 13:22] LABS: ALBUMIN 2.9 g/dL (3.4-5.0); BILIRUBIN,TOTAL 0.5 mg/dL (0.2-1.0); CALCIUM 8.5 mg/dL (8.5-10.1); CREATININE 1.3 mg/dL (0.6-1.3); PHOSPHOROUS 3.2 mg/dL (2.5-4.9); POTASSIUM 3.7 mmol/L (3.5-5.1); TOTAL PROTEIN, SERUM 6.9 g/dL (6.4-8.2)
[2023-12-21 13:35] LABS: DIFFERENTIAL COMMENT 1
[2023-12-21 15:19] LABS: THYROID STIMULATING HORMONE 4.407 mIU/mL (0.358-3.740)
[2023-12-21 16:08] VITALS: O2SAT 96
[2023-12-21 16:14] VITALS: BP 127/67; TEMP 98.1; O2SAT 96
[2023-12-21 20:33] VITALS: BP 147/81; TEMP 98.3; O2SAT 97
[2023-12-22 06:07] VITALS: BP 146/77; TEMP 97.6; O2SAT 98
[2023-12-22 09:20] LABS: BASOPHILS # (AUTO) 0.1 K/UL (0.0-0.2); EOSINOPHILS # (AUTO) 0.2 K/uL (0.0-0.7); EOSINOPHILS % (AUTO) 3.8 % (0.0-7.0); HEMOGLOBIN 13.6 g/dL (12.5-16.3); LYMPHOCYTES # (AUTO) 0.7 K/uL (0.8-4.8); LYMPHOCYTES % (AUTO) 10.7 % (20.5-51.5); MEAN CORPUSCULAR HEMOGLOBIN 28.1 uug (23.8-33.4); MEAN CORPUSCULAR HGB CONC 32 g/dL (32.5-36.3); MEAN CORPUSCULAR VOLUME 86.5 fL (73.0-96.2); MONOCYTES # (AUTO) 0.3 K/uL (0.1-1.30); NEUTROPHILS # (AUTO) 5.1 K/uL (1.8-8.9); NEUTROPHILS % (AUTO) 78.5 % (38.5-71.5); PLATELET COUNT (AUTO) 116 K/uL (152-348); RED BLOOD CELL COUNT(AUTO) 4.86 MIL/uL (4.06-5.63); RED CELL DISTRIBUTION WIDTH 13.5 % (12.1-16.2); WHITE BLOOD COUNT (AUTO) 6.6 K/uL (3.6-10.2)
[2023-12-22 09:40] LABS: DIFFERENTIAL COMMENT 1
[2023-12-22 09:44] LABS: CALCIUM 9.2 mg/dL (8.5-10.1); CARBON DIOXIDE 28 mmol/L (21-32); CHLORIDE 103 mmol/L (98-107); CREATININE 1.4 mg/dL (0.6-1.3); GLUCOSE 109 mg/dL (74-106); POTASSIUM 3.6 mmol/L (3.5-5.1); SODIUM SERUM 138 mmol/L (136-145); UREA NITROGEN, BLOOD 19 mg/dL (7-18)
[2023-12-22 11:47] VITALS: BP 127/79; TEMP 97.5; O2SAT 98
[2023-12-22 15:09] LABS: A/G RATIO 0.7 (0.7-1.7); ALBUMIN 2.7 g/dL (2.9-4.4); ALPHA-1-GLOBULIN 0.2 g/dL (0.0-0.4); ALPHA-2-GLOBULIN 0.7 g/dL (0.4-1.0); BETA GLOBULIN 0.8 g/dL (0.7-1.3); GAMMA GLOBULIN 1.9 g/dL (0.4-1.8); GLOBULIN, TOTAL 3.7 g/dL (2.2-3.9); M-SPIKE 0.6 g/dL (Not Observed)
[2023-12-22 16:00] VITALS: BP 125/74; TEMP 97.5; O2SAT 95
[2023-12-22 17:56] VITALS: O2SAT 96
[2023-12-22 20:00] VITALS: BP 103/58; TEMP 98; O2SAT 95
[2023-12-23 00:20] VITALS: O2SAT 96
[2023-12-23 07:01] VITALS: BP 145/62; TEMP 98; O2SAT 100
[2023-12-23 08:16] LABS: CALCIUM 9.5 mg/dL (8.5-10.1); CARBON DIOXIDE 29 mmol/L (21-32); CHLORIDE 104 mmol/L (98-107); CREATININE 1.5 mg/dL (0.6-1.3); GLUCOSE 107 mg/dL (74-106); POTASSIUM 3.8 mmol/L (3.5-5.1); SODIUM SERUM 138 mmol/L (136-145); UREA NITROGEN, BLOOD 23 mg/dL (7-18)
[2023-12-23 12:00] VITALS: BP 125/75; TEMP 98.1; O2SAT 93; O2SAT 96
[2023-12-23 16:00] VITALS: BP 115/60; TEMP 97.5; O2SAT 97
== END 2023-12-23 17:45 | DRG 682 ==
LOC: ER 13:58 → MEDSURG3 18:32
PROVIDERS: ADMIT Internal Medicine; ATTEND Internal Medicine
DX: N17.0 Acute kidney failure with tubular necrosis (principal); G92.8 Other toxic encephalopathy; I69.354 Hemiplegia and hemiparesis following cerebral infarction affecting left non-dominant side; D68.59 Other primary thrombophilia; J98.11 Atelectasis; G91.2 (Idiopathic) normal pressure hydrocephalus; E86.0 Dehydration; Z74.09 Other reduced mobility; N40.0 Benign prostatic hyperplasia without lower urinary tract symptoms; E78.5 Hyperlipidemia, unspecified; Z79.899 Other long term (current) drug therapy; D69.6 Thrombocytopenia, unspecified; M62.49 Contracture of muscle, multiple sites; L98.8 Other specified disorders of the skin and subcutaneous tissue; F01.50 Vascular dementia, unspecified severity, without behavioral disturbance, psychotic disturbance, mood disturbance, and anxiety; G30.9 Alzheimer's disease, unspecified; F02.80 Dementia in other diseases classified elsewhere, unspecified severity, without behavioral disturbance, psychotic disturbance, mood disturbance, and anxiety; I69.320 Aphasia following cerebral infarction; E11.22 Type 2 diabetes mellitus with diabetic chronic kidney disease; N18.9 Chronic kidney disease, unspecified; Z87.891 Personal history of nicotine dependence; G40.909 Epilepsy, unspecified, not intractable, without status epilepticus
CPT/HCPCS: 36415; 71045; 76770; 83550; 83605; 83735; 83970; 84100; 84155; 84165; 84443; 84484; 85025; 87040; 93005; A4606; A4663; G0378; J2543; J3480; J3490; J7040

== ENCOUNTER 2025-03-06 13:47 | Inpatient (IN) | payer MEDICARE, OTHER ==
[~2025-03-06] VITALS: Ht 170.2 cm; Wt 63.5 kg
[~2025-03-06 13:47] MED LIST changes: +CHOL10005 PO; +CYAN-51 PO
[2025-03-06] MEDS: IV NORMAL SALINE 1000 ML BAG IV ONE (14:00)
[2025-03-06 14:28] LABS: PLATELET COUNT (AUTO) 132 K/uL (152-348); RED BLOOD CELL COUNT(AUTO) 3.94 MIL/uL (4.06-5.63); RED CELL DISTRIBUTION WIDTH 14.6 % (12.1-16.2); WHITE BLOOD COUNT (AUTO) 9.7 K/uL (3.6-10.2)
[2025-03-06 14:37] LABS: CREATININE 1.1 mg/dL (0.6-1.3); SODIUM SERUM 138 mmol/L (136-145); UREA NITROGEN, BLOOD 25 mg/dL (7-18)
[2025-03-06] MEDS ORDERED: CEFTRIAXONE /D5W 50ML IVPB **ER PYXIS IV ONE (14:39)
[2025-03-06 14:43] LABS: ASPARTATE AMINOTRANSFERASE 12 U/L (15-37); TOTAL PROTEIN, SERUM 6.7 g/dL (6.4-8.2)
[2025-03-06] MEDS ORDERED: AMIN887L7 PO (15:14)
[2025-03-06] MEDS ORDERED: MEMA5TAB PO (15:14)
[2025-03-06] MEDS ORDERED: LEUC5TAB PO (15:14)
[2025-03-06] MEDS ORDERED: CALC-343 PO (15:14)
[2025-03-06] MEDS ORDERED: ASPI81TA31 PO (15:14)
[2025-03-06 15:52] LABS: *BILIRUBIN,URIN NEGATIVE (NEGATIVE); *BLOOD, URINE 1+ (NEGATIVE); *CLARITY,URINE CLEAR (CLEAR); *COLOR,URINE YELLOW (YELLOW); *KETONES,URINE NEGATIVE (NEGATIVE); *PROTEIN,URINE 1+ (NEGATIVE); *UROBILINOGEN,URINE 0.2 E.U./dl (NORMAL); LEUKOCYTE ESTERASE ,URINE 3+ (NEGATIVE); NITRITE, URINE NEGATIVE (NEGATIVE); UGLUCOSE NEGATIVE (NEGATIVE)
[2025-03-06 16:23] LABS: SQUAMOUS EPITHELIAL CELL,UR FEW /HPF (NONE SEEN); TRIPLE PHOSPHATE CRYSTAL,UR MANY /HPF (NONE SEEN)
[2025-03-06] MEDS ORDERED: ACETAMINOPHEN 325 MG TABLET PO PRN (16:30)
[2025-03-06] MEDS ORDERED: ONDANSETRON 4 MG/2 ML VIAL IV PRN (16:30)
[2025-03-06] MEDS ORDERED: REMEDY ESSENTIAL ZINC PASTE 113 GM TP PRN (16:30)
[2025-03-06] MEDS ORDERED: CALCIUM CARBONATE 500 MG TAB.CHEW PO SCH (17:00)
[2025-03-06 19:48] VITALS: BP 136/71; TEMP 98; O2SAT 95
[2025-03-06] MEDS: MEMANTINE HCL 5 MG TABLET PO SCH (20:27)
[2025-03-06] MEDS: TAMSULOSIN HCL 0.4 MG CAP.SR.24H PO SCH (20:27)
[2025-03-06] MEDS: CALCIUM CARBONATE 500 MG TAB.CHEW PO SCH (20:27)
[2025-03-06] MEDS: ENOXAPARIN SODIUM 40 MG/0.4 ML DISP.SYRIN SQ SCH (20:29)
[2025-03-07] VITALS (8 sets, daily range): BP systolic 102–137; BP diastolic 48–72; TEMP 97.5–98.4; O2SAT 93–98
[2025-03-07] MEDS: IV NS 1000 ML 1,000 ML IV PRN (00:20)
[2025-03-07] MEDS: PANTOPRAZOLE SODIUM 40 MG TABLET.DR PO SCH (06:24)
[2025-03-07 06:45] LABS: PLATELET COUNT (AUTO) 123 K/uL (152-348); RED BLOOD CELL COUNT(AUTO) 3.70 MIL/uL (4.06-5.63); RED CELL DISTRIBUTION WIDTH 14.4 % (12.1-16.2); WHITE BLOOD COUNT (AUTO) 7.0 K/uL (3.6-10.2)
[2025-03-07 06:55] LABS: CREATININE 1.3 mg/dL (0.6-1.3); SODIUM SERUM 145 mmol/L (136-145); UREA NITROGEN, BLOOD 23 mg/dL (7-18)
[2025-03-07 06:58] LABS: IRON, SERUM 50 ug/dL (50-175)
[2025-03-07] MEDS: ASPIRIN 81 MG TAB.CHEW PO SCH (08:39)
[2025-03-07] MEDS: MULTIVITAMINS,THERAPEUTIC TABLET PO SCH (08:39)
[2025-03-07] MEDS: FOLIC ACID 1 MG TABLET PO SCH (08:40)
[2025-03-07] MEDS: CYANOCOBALAMIN 1,000 MCG TABLET PO SCH (08:40)
[2025-03-07] MEDS: ASCORBIC ACID 500 MG TABLET PO SCH (08:40)
[2025-03-07] MEDS ORDERED: Medication Not On Formulary EA (Multivitamins (Multivitamin) 1 TAB) PO SCH (09:00)
[2025-03-07] MEDS: AZITHROMYCIN 250 MG TABLET PO ONE (11:59)
[2025-03-07 12:09] LABS: CREATININE 1.2 mg/dL (0.6-1.3); SODIUM SERUM 143 mmol/L (136-145); UREA NITROGEN, BLOOD 21 mg/dL (7-18)
[2025-03-07] MEDS: ACETYLCYSTEINE 10% 4ML VIAL NEB SCH (15:30)
[2025-03-07] MEDS: GUAIFENESIN LA 600 MG TABLET.SA PO SCH (21:11)
[2025-03-07] MEDS: ALBUTEROL SULFATE 2.5 MG/3 ML NEBU NEB PRN (22:58)
[2025-03-08] VITALS (11 sets, daily range): BP systolic 95–107; BP diastolic 45–55; TEMP 97.7–98.2; O2SAT 95–100
[2025-03-08 06:51] LABS: PLATELET COUNT (AUTO) 126 K/uL (152-348); RED BLOOD CELL COUNT(AUTO) 3.72 MIL/uL (4.06-5.63); RED CELL DISTRIBUTION WIDTH 14.6 % (12.1-16.2); WHITE BLOOD COUNT (AUTO) 8.4 K/uL (3.6-10.2)
[2025-03-08 06:54] LABS: CREATININE 1.6 mg/dL (0.6-1.3); SODIUM SERUM 149 mmol/L (136-145); UREA NITROGEN, BLOOD 21 mg/dL (7-18)
[2025-03-08] MEDS: ENSURE ENLIVE (VAN) 240 ML LIQUID PO SCH (08:08)
[2025-03-08] MEDS: ARGININE/GLUTAMINE/CALCIUM BMB 1 EACH POWD.PACK PO SCH (08:08)
[2025-03-08] MEDS: AZITHROMYCIN 250 MG TABLET PO SCH (10:24)
[2025-03-08] MEDS: IV D5W 1000ML 1,000 ML IV PRN (15:24)
[2025-03-09 06:00] VITALS: BP 126/73; TEMP 97.7; O2SAT 98
[2025-03-09 07:01] LABS: PLATELET COUNT (AUTO) 124 K/uL (152-348); RED BLOOD CELL COUNT(AUTO) 3.56 MIL/uL (4.06-5.63); RED CELL DISTRIBUTION WIDTH 14.3 % (12.1-16.2); WHITE BLOOD COUNT (AUTO) 7.7 K/uL (3.6-10.2)
[2025-03-09 07:08] LABS: CREATININE 1.2 mg/dL (0.6-1.3); SODIUM SERUM 141 mmol/L (136-145); UREA NITROGEN, BLOOD 20 mg/dL (7-18)
[2025-03-09 07:41] VITALS: O2SAT 98
[2025-03-09] MEDS ORDERED: CEPH500T PO (08:23)
[2025-03-09 11:26] VITALS: BP 129/74; TEMP 97.8; O2SAT 97
[2025-03-09 14:03] VITALS: O2SAT 96
[2025-03-09 14:13] VITALS: O2SAT 100
== END 2025-03-09 15:15 | DRG 690 ==
LOC: ER 13:47 → MEDSURG3 17:50 → TELE3 18:47 → MEDSURG3 03-08 10:54
PROVIDERS: ADMIT Nurse Practitioner Family; ATTEND Nurse Practitioner Family
DX: N39.0 Urinary tract infection, site not specified (principal); I69.354 Hemiplegia and hemiparesis following cerebral infarction affecting left non-dominant side; E44.0 Moderate protein-calorie malnutrition; F02.83 Dementia in other diseases classified elsewhere, unspecified severity, with mood disturbance; G91.2 (Idiopathic) normal pressure hydrocephalus; N17.9 Acute kidney failure, unspecified; E87.0 Hyperosmolality and hypernatremia; E86.0 Dehydration; E78.5 Hyperlipidemia, unspecified; G40.909 Epilepsy, unspecified, not intractable, without status epilepticus; E11.22 Type 2 diabetes mellitus with diabetic chronic kidney disease; N18.9 Chronic kidney disease, unspecified; Z79.82 Long term (current) use of aspirin; Z79.899 Other long term (current) drug therapy; M24.562 Contracture, left knee; M24.522 Contracture, left elbow; E88.09 Other disorders of plasma-protein metabolism, not elsewhere classified; F32.A Depression, unspecified; G30.9 Alzheimer's disease, unspecified; N40.0 Benign prostatic hyperplasia without lower urinary tract symptoms; R79.89 Other specified abnormal findings of blood chemistry; D69.6 Thrombocytopenia, unspecified; D64.9 Anemia, unspecified; B96.4 Proteus (mirabilis) (morganii) as the cause of diseases classified elsewhere
CPT/HCPCS: 36415; 71045; 82746; 83550; 83605; 83735; 84100; 84443; 84484; 85025; 85730; 87040; 87077; 87086; 94640; 94760; A4606; A4663; G0378; J0696; J1650; J7040; J7070; Q0144